=== PATIENT | female | born 1980 | race Asian ===

== ENCOUNTER 2024-09-30 13:11 | Emergency (ER) | payer OTHER ==
[~2024-09-30] VITALS: Ht 154.9 cm; Wt 74.8 kg
[2024-09-30 13:19] VITALS: TEMP 98.6
[2024-09-30 14:45] VITALS: PULSE 80; RESP 18
[2024-09-30] MEDS ORDERED: VALTREX1000 MG PO (14:58)
[2024-09-30] MEDS ORDERED: PREDNISONE50 MG PO (14:58)
[2024-09-30 15:09] VITALS: BP 137/80; PULSE 73; RESP 16; TEMP 98.6; O2SAT 98
== END 2024-09-30 15:11 | disposition home or self-care (01) ==
LOC: ER 13:30
DX: G51.0 Bell's palsy (principal); Z85.41 Personal history of malignant neoplasm of cervix uteri
CPT/HCPCS: 70450; 99283